=== PATIENT | male | born 1935 | race Caucasian/White ===

== ENCOUNTER 2019-08-28 23:57 | Emergency (ER) | payer OTHER ==
[~2019-08-28] VITALS: Ht 182.9 cm; Wt 81.7 kg
--- NOTE | ~2019-08-28 | EMS ---
[address] [address] EMS Patient Care Report Name: KB DÍAZ Room #: REG MANUEL Lu#: [id number] Admission: 08/28/19 Attend Phys: Discharge: Date of : 31 Report #: [id number] THIS REPORT FOR: //name// Report Transmitted: 08/29/2019 00:46 EMS Care Summary [facility] MED-ACT Incident [id number] @ 08/28/2019 23:26 Incident Location [address] [place] [address] Patient KB DÍAZ Male, 83 Years 1935 Patient Address [address] [place] [address] Patient History Dementia,Hypertension (HTN),Pacemaker/AICD,Hyperlipidemia,Gastro-Esophageal Reflux Disease (GERD),Urinary Tract Infection (UTI),Anxiety,Anemia,Glaucoma,Type 2 Diabetes, Patient Allergies No known allergies, Patient Medications Levemir, Tramadol, Ondansetron, Loperamide, Tamsulosin, Finasteride, Aspirin, Timolol, Acetaminophen, Eliquis, Levothyroxine, Clonidine, Glucagon, Metformin, Bisacodyl, Chief Complaint Gash on R forearm Disposition Transported No Lights/Dubberly Dispatch Reason Falls Transported To [address] [address] EMS Patient Care Report Name: KB DÍAZ Room #: REG Aly#: [id number] Admission: 08/28/19 Attend Phys: Discharge: Date of : 31 Report #: [id number] Narrative Responded to above facility for a fall. Upon arrival pt was in lobby in a wheelchair. Pt was awake, alert and oriented. Skin color normal and pt had bandages applied to both forearms. Pt states that he fell from a chair earlier that day at around 5 and caught his arm on something. Staff states pt has a pretty good skin tear on his R forearm that they have been unable to stop from bleeding. Pt denies LOC or passing out. Pt states he is not in any pain at this time. Staff states pt is on blood thinners. Pt denies additional complaints. Physical exam unremarkable. Wound not unbandaged for visualization. Pt contact, primary exam, vitals, secondary and physical exam. pt assisted to stand and pivot to cot, secured with all belts. Pt to ambulance. transport, radio report Pt delivered to ER rm 3 and moved to bed via sheet lift. Report to Rn and pt care transferred. Initial Vitals @23:51P: 92,BP: 153/70,SpO2: 96, @23:42P: 79,R: 16,BP: 158/69,Pain: 0/10,GCS: 15,SpO2: 99,Revised Trauma: 12, Assessments @23:40MENTAL:Person Oriented,Place Oriented,Event Oriented,Time Oriented,SKIN:HEENT:Eyes: No Abnormalities,LUNG SOUNDS:General: No Abnormalities,Left Upper: No Abnormalities,Right Upper: No Abnormalities,Left Lower: No Abnormalities,Right Lower: No Abnormalities,ABDOMEN:General: No Abnormalities,Left Upper: No Abnormalities,Right Upper: No Abnormalities,Left Lower: No Abnormalities,Right Lower: No Abnormalities,PELVIS//GI:No Abnormalities,EXTREMITIES:Right Arm: LAC,Left Arm: LAC,Left Leg: No Abnormalities,Right Leg: No Abnormalities,PULSE:NEURO: Impression Injury of Forearm Timeline 23:23,Call Received 23:23,Psap Call 23:26,Dispatched 23:27,En Route 23:34,On Scene 23:36,At Patient 23:42,BP: 158/69 M,PULSE: 79,RR: 16 R,SPO2: 99 Ox,ETCO2: ,BG: ,PAIN: 0,GCS: 15, 23:44,Depart Scene 23:51,BP: 153/70 M,PULSE: 92,RR: R,SPO2: 96 Ox,ETCO2: ,BG: ,PAIN: ,GCS: , 23:53,At Destination [address] [address] EMS Patient Care Report Name: KB DÍAZ Room #: REG [facility].#: [id number] Admission: 08/28/19 Attend Phys: Discharge: Date of : 31 Report #: [id number] 00:21,Call Closed Disclaimer v1.1 Copyright 2020 [employer] This EMS Care Summary contains data elements from the applicable legal record (which may be displayed differently). It is designed to provide pertinent information for the following purposes: continuity of care, clinical quality, and state data reporting. The complete legal record is available to ED staff and administrators of the receiving hospital in [facility]'s Patient Tracker. All data is provided "as is."
[2019-08-29 03:05] VITALS: BP 135/61
[2019-08-29] MEDS ORDERED: ASA81BEC PO (03:28)
[2019-08-29] MEDS ORDERED: ACETAMINOPHEN325 M1 PO (03:28)
[2019-08-29] MEDS ORDERED: BISACODYL10 MG RECTAL (03:29)
[2019-08-29] MEDS ORDERED: CLONIDINE HCL0.2 M2 PO (03:31)
[2019-08-29] MEDS ORDERED: ELIQUIS5 MG PO (03:32)
[2019-08-29] MEDS ORDERED: FINASTERIDE5 MG PO (03:32)
[2019-08-29] MEDS ORDERED: LEVEMIR FL100 UNIT/2 SUBQ (03:33)
[2019-08-29] MEDS ORDERED: LEVOTHYROXINE100 MCG PO (03:33)
[2019-08-29] MEDS ORDERED: LATANOPROST 0.2.5 ML OPHTHALMIC (03:33)
[2019-08-29] MEDS ORDERED: LOPERAMIDE 2 MG2 M1 PO (03:34)
[2019-08-29] MEDS ORDERED: MAGNESIUM OXID400 M2 PO (03:34)
[2019-08-29] MEDS ORDERED: METFORMIN HCL500 MG PO (03:35)
[2019-08-29] MEDS ORDERED: ZOFRAN4 MG PO (03:35)
[2019-08-29] MEDS ORDERED: PEG3350510 GM PO (03:36)
[2019-08-29] MEDS ORDERED: TAMSULOSIN HCL0.4 MG PO (03:36)
[2019-08-29] MEDS ORDERED: TIMOLOL MALEATE5 M1 OPHTHALMIC (03:36)
[2019-08-29] MEDS ORDERED: VITAMIN B-121000 MC2 PO (03:37)
[2019-08-29] MEDS ORDERED: TRAMADOL 50 MG50 MG PO (03:37)
== END 2019-08-29 04:12 ==
LOC: ER 23:57
DX: S51.811A Laceration without foreign body of right forearm, initial encounter (principal); R51 Headache; Z95.0 Presence of cardiac pacemaker; Z79.899 Other long term (current) drug therapy; Z79.4 Long term (current) use of insulin; Z79.82 Long term (current) use of aspirin; W05.0XXA Fall from non-moving wheelchair, initial encounter; Y93.89 Activity, other specified; Y92.128 Other place in nursing home as the place of occurrence of the external cause; Y99.8 Other external cause status

== ENCOUNTER 2019-08-29 10:48 | Emergency (ER) | payer OTHER ==
[~2019-08-29] VITALS: Ht 188 cm; Wt 86.2 kg
[~2019-08-29 10:48] MED LIST: ACETAMINOPHEN325 M1 PO; ASA81BEC PO; BISACODYL10 MG RECTAL; CLONIDINE HCL0.2 M2 PO; ELIQUIS5 MG PO; FINASTERIDE5 MG PO; LATANOPROST 0.2.5 ML OPHTHALMIC; LEVEMIR FL100 UNIT/2 SUBQ; LEVOTHYROXINE100 MCG PO; LOPERAMIDE 2 MG2 M1 PO; MAGNESIUM OXID400 M2 PO; METFORMIN HCL500 MG PO; PEG3350510 GM PO; TAMSULOSIN HCL0.4 MG PO; TIMOLOL MALEATE5 M1 OPHTHALMIC; TRAMADOL 50 MG50 MG PO; VITAMIN B-121000 MC2 PO; ZOFRAN4 MG PO
[2019-08-29 16:12] VITALS: BP 123/58
== END 2019-08-29 17:36 ==
LOC: ER 10:48
DX: S51.811A Laceration without foreign body of right forearm, initial encounter (principal); Z79.899 Other long term (current) drug therapy; Z79.82 Long term (current) use of aspirin; Z79.4 Long term (current) use of insulin; Z95.0 Presence of cardiac pacemaker; W18.30XA Fall on same level, unspecified, initial encounter; Y93.89 Activity, other specified; Y92.89 Other specified places as the place of occurrence of the external cause; Y99.9 Unspecified external cause status

== ENCOUNTER 2020-01-07 09:45 | Inpatient (IN) | payer OTHER ==
[~2020-01-07] VITALS: Ht 175.3 cm; Wt 70.3 kg
[2020-01-07 10:28] LABS: HEMATOCRIT 29.6 % (42.0-52.0); HEMOGLOBIN 9.3 gm/dL (14.0-18.0); MCH 22.1 pg (26.0-34.0); MCHC 31.3 g/dL (28.0-37.0); MCV 70.7 fL (80.0-100.0); PLATELET COUNT 267 thou/uL (150-400); RBC 4.19 mil/uL (4.50-6.00); RDW 17.3 % (10.5-14.5)
[2020-01-07 10:42] LABS: ANION GAP 9 mmol/L (7-16); BUN 50 mg/dL (7-18); CALCIUM 9.5 mg/dL (8.5-10.1); CHLORIDE 108 mmol/L (98-107); CO2 28 mmol/L (21-32); CREATININE 2.4 mg/dL (0.7-1.3); GLUCOSE 89 mg/dL (74-106); POTASSIUM 4.6 mmol/L (3.5-5.1); SODIUM 145 mmol/L (136-145)
[2020-01-07 10:53] LABS: ANISOCYTOSIS 2+; HYPOCHROMASIA 1+; MAGNESIUM 2.7 mg/dL (1.8-2.4); MICROCYTES 2+; PLATELET ESTIMATE NORMAL; SGOT 12 U/L (15-37); SGPT 10 U/L (30-65); TOTAL BILIRUBIN 0.7 mg/dL (0.2-1.0); TOTAL PROTEIN 8.1 g/dL (6.4-8.2); TROPONIN-I <0.06 ng/mL (<0.06)
[2020-01-07 10:53] LABS: BE(vivo) -0.5 mmol/L (-2 to +3); HCO3 22.3 mmol/L (22.0-26.0); PCO2 30.9 mmHg (35.0-45.0); PO2 328.6 mmHg (80.0-100.0); pH 7.476 (7.360-7.450); sO2 99.8 % (92.0-98.0)
[2020-01-07 12:01] LABS: URINE CLARITY TURBID; URINE COLOR YELLOW
[2020-01-07 12:02] LABS: URINE GLUCOSE-RANDOM* NEGATIVE (Negative); URINE PROTEIN (DIPSTICK) 2+ (Negative); URINE SPECIFIC GRAVITY 1.015 (1.005-1.035)
[2020-01-07 12:03] LABS: URINE BILIRUBIN NEGATIVE (Negative); URINE BLOOD 2+ (Negative); URINE KETONES NEGATIVE (Negative); URINE LEUKOCYTES-REFLEX 3+ (Negative); URINE NITRITE-REFLEX NEGATIVE (Negative); URINE UROBILINOGEN 0.2 E.U./dl (0.2-1.0)
[2020-01-07 12:06] LABS: AMP/METHAMP Negative (Negative); BARBITURATES Negative (Negative); BENZODIAZEPINES Negative (Negative); COCAINE Negative (Negative); METHADONE Negative (Negative); OPIATES Negative (Negative); PCP Negative (Negative)
[2020-01-07 12:14] LABS: BACTERIA-REFLEX >30 Many /HPF (None Seen); CASTS None Seen /LPF (None Seen); CRYSTALS None Seen /LPF (None Seen); SQUAMOUS 0-3 Few /LPF (0-3); URINE RBC 0-2 Rare /HPF (0-2); URINE WBC-REFLEX >25 Many /HPF (0-5)
[2020-01-07 12:15] LABS: WBC CLUMPS Packed (None Seen)
--- NOTE | 2020-01-07 14:38 | EKG ---
[facility] [place] [address] ELECTROCARDIOGRAM REPORT Name: KB DÍAZ Room #: 170-8 ADM IN M.R.#: [id number] Admission: 01/07/20 Attend Phys: Nalini Anderson Discharge: Date of : 31 Report #: [id number] THIS REPORT FOR: cc: Emanuel Tello,Cosmo Castro MD [facility] ~ THIS REPORT FOR: //name// [facility] ED Test Date: 2020-01-07 Test Time: 11:32:01 Pat Name: KB DÍAZ Department: Room: 170 Gender: M Special Agent: STACY : 1935 Requested By: Migel Mittal Order Number: [id number] MD: Cosmo Corrales Measurements Intervals [place] Rate: 70 P: 21 WI: 136 QRS: -75 QRSD: 95 T: -66 QT: 391 QTc: 422 Interpretive Statements Atrial-ventricular dual-paced rhythm No further analysis attempted due to paced rhythm Artifact in lead(s) II Compared to ECG 06/13/1990 07:33:00 Sinus bradycardia no longer present Electronically Signed On 01-07-2020 14:38:36 TEACHING ASSOCIATE by Cosmo Corrales [email or web address] <ELECTRONICALLY SIGNED> By: Cosmo Corrales MD, FACC 01/07/20 1438 1132 1132 Cosmo Corrales MD, FAC /EPI
[2020-01-07 22:10] VITALS: BP 142/57
[2020-01-07 23:14] VITALS: BP 168/79
[2020-01-07 23:48] VITALS: BP 107/49
--- NOTE | 2020-01-08 03:53 | NUR ---
PT ADMITTED TO THE UNIT AT 2315 FROM THE ER.PT ADMITTED FOR C/O AMS,TESTED POSITIVE FOR COVID 2WEEKS AGO.PT O2 SAT WAS 80'S ON RM AND PLACED ON O2 AND O2 SSAT 99.IV ACCESS ON LT AC WITH NS @75CC/HR.PT ON BED REST AND TOTAL CARE.PT HAS A BELL CATHETER AND BRUSING ON ARM AND FOREARM.PT IS ACCUCHECK ACHS .LUNGS WITH DIMINISHED SOUNDS AND COARSE.PT IS MED/SURG TELE.WILL CONTINUE TO MONITOR
[2020-01-08 04:08] VITALS: BP 145/74
[2020-01-08 07:10] VITALS: BP 152/76
[2020-01-08 11:15] VITALS: BP 139/71
--- NOTE | 2020-01-08 13:42 | NUR ---
FAXED CLINICAL UPDATE TO [facility] SPOKE WITH KAUSHIK IN ADM SHE RECEIVED UPDATE. DP TO FOLLOW.
--- NOTE | 2020-01-08 14:57 | NUR ---
ASSESSMENT: CM REVIEWED CHART. PT IS FROM L[facility] AT [facility]. PT TESTED POSITIVE FOR COVID 19 ON 12/21 PER MASSIEL IN ADMISSIONS AT HIS FACILITY. PT WAS THEN HAVING SOME AMS AND HYPOXIC SO WAS BROUGHT TO [facility]. PT IS CURRENTLY ON 2L OF OXYGEN AND DOES NOT NORMALLY WEAR OXYGEN AT THE FACILITY. PT USES A WHEELCHAIR THERE FOR AMBULATION. PTS MALLY IS HIS PRIMARY CONTACT. CM SPOKE WITH AND CONFIRMED INFORMATION. STORE STOCK HELP IS TO SEND FACILITY CLINICAL INFORMATION. PT IS CURRENTLY ON IV ANBX AND IV STEROIDS. PLANS ARE FOR PATIENT TO RETURN TO [facility] ONCE MEDICALLY STABLE. CM WILL CONTINUE TO FOLLOW TO ASSIST NEEDED.
[2020-01-08 15:18] VITALS: BP 153/73
--- NOTE | 2020-01-08 20:50 | NUR ---
Patient sat on the bed side with the PT. talked to the patient, but voicing that he did not know where he was, the staff oriented the patient.
[2020-01-08 22:21] VITALS: BP 114/61
[2020-01-08 22:23] VITALS: BP 165/102
[2020-01-09 05:00] VITALS: BP 148/81
[2020-01-09 07:11] VITALS: BP 138/82
--- NOTE | 2020-01-09 08:00 | NUR ---
Assumed pt care at 1900. Alert to self only,yelling out in room on checking pt requests for water,water given to pt per request but other times without any reason. Denied pain on assessment, VSS. Takes meds whole w/o any problems. Vanegas patent draining yellow urine. IV patent on LAC. Fall precauitons in place. Resting quietly without any distress noted, oxygen in place at 2L/NC.
[2020-01-09] MEDS ORDERED: CEFUROXIME250 MG PO (10:31)
[2020-01-09 11:49] LABS: CALCIUM 8.7 mg/dL (8.5-10.1); POTASSIUM 4.5 mmol/L (3.5-5.1)
--- NOTE | 2020-01-09 13:46 | NUR ---
PT DISCHARGING TODAY BACK TO [facility] SPOKE WITH KAUSHIK IN ADM THEY HAVE AUTH FOR SKILLED STAY FAXED DC ORDERS/SUMMARY TO FACILITY RECEIVED CONFIRMATION. TRANSPORT ARRANGED BY KAUSHIK VELASQUEZ NO O2. SPOKE WITH PT'S (MALLY) DC AND TIME OF TRANSPORT. UNIT NOTIFIED AND CHART COPY PER US. RN TO CALL REPORT TO [phone].
--- NOTE | 2020-01-09 14:36 | NUR ---
DISCHARGE NOTE: SW reviewed chart and spoke with nursing and attending physician. Pt remains in Enhanced Isolation due to COVID-19. Pt is afebrile and not requiring O2. Pt is medically stable for discharge back to [facility] today. Pt will return using his skilled benefit. store planner coordinated and notified family. Stretcher van transportation scheduled for 1900 per facility's arrangements. Chart copy requested. Nursing to call report. No additional SW needs identified at this time, but is available to assist should needs arise.
--- NOTE | 2020-01-09 18:30 | NUR ---
PT ASSESSED AT START OF SHIFT. NEEDS ASSIST W/ ALL CARES. HOLLARS OUT AT TIMES. ORIENTED TO SELF ONLY. RESP EVEN AND UNLABORED. ON 2L NC. BELL DRAINING CLEAR YELLOW URINE. NO C/O PAIN. IV DC'D -PT TRANSFERRING BACK TO [facility] PER STRETCHER THIS EVENING.
[2020-01-09 19:42] VITALS: BP 136/50
--- NOTE | 2020-01-09 20:30 | NUR ---
Pt. discharged to [facility] via stretcher. Pt. offers no complaints.
== END 2020-01-09 20:30 | DRG 177 ==
LOC: ER 09:45 → 3W 12:42 → EROBS 12:42 → 3W 23:10
PROVIDERS: Emergency Medicine; ADMIT Hospitalist; ATTEND Hospitalist
DX: U07.1 COVID-19 (principal); N17.0 Acute kidney failure with tubular necrosis; J96.01 Acute respiratory failure with hypoxia; N39.0 Urinary tract infection, site not specified; G93.40 Encephalopathy, unspecified; E86.0 Dehydration; N40.1 Benign prostatic hyperplasia with lower urinary tract symptoms; I10 Essential (primary) hypertension; F03.90 Unspecified dementia, unspecified severity, without behavioral disturbance, psychotic disturbance, mood disturbance, and anxiety; F41.9 Anxiety disorder, unspecified; B96.20 Unspecified Escherichia coli [E. coli] as the cause of diseases classified elsewhere; Z79.899 Other long term (current) drug therapy; Z95.0 Presence of cardiac pacemaker
CPT/HCPCS: 10080